=== PATIENT | female | born 1965 ===

== ENCOUNTER 2024-01-07 11:45 | Inpatient (IN) | payer OTHER ==
[~2024-01-07] VITALS: Ht 172.7 cm; Wt 78.5 kg
[~2024-01-07 11:45] MED LIST: CIPRO750 MG PO; CLONAZEPAM1 MG PO; DOCUSATE SODIU100 MG PO; LEVSIN0.125 MG PO; METHYLPRED4 MG/DOSE- PO; NEURONTIN PO; PERCOCET 5/3251 TAB PO; PROTONIX40 MG PO; ZANTAC300 MG PO; ZOFRAN4 MG PO
[2024-01-07] MEDS ORDERED: SYNTHROID112 MCG PO (13:51)
[2024-01-18] MEDS ORDERED: PROMETHAZINE HCL 50 MG/ML AMPUL IM PRN (08:15)
[2024-01-18] MEDS ORDERED: 0.9 % SODIUM CHLORIDE 1,000 ML IV SCH (08:15)
[2024-01-18] MEDS ORDERED: ENALAPRILAT DIHYDRATE 1.25 MG/ML VIAL IV PRN (08:15)
[2024-01-18] MEDS ORDERED: FAMOtidine 20 MG TABLET PO SCH (09:00)
[2024-01-18] MEDS ORDERED: TAMSULOSIN HCL 0.4 MG CAP PO SCH (09:00)
[2024-01-18] MEDS ORDERED: METHYLPREDNISOLONE SOD SUCC 125 MG VIAL IV SCH (09:00)
[2024-01-18] MEDS ORDERED: VANCOMYCIN HCL 1,000 MG VIAL IV SCH (09:00)
[2024-01-18] MEDS ORDERED: CEFAZOLIN SODIUM 1,000 MG in 0.9 % SODIUM CHLORIDE 50 ML IV SCH (09:00)
[2024-01-18] MEDS ORDERED: DOCUSATE SODIUM 100MG CAP PO SCH (09:00)
[2024-01-18] MEDS ORDERED: MORPHINE SULFATE 4 MG/ML CARTRIDGE IV SCH (09:00)
[2024-01-18] MEDS ORDERED: MEDROLPACK PO (12:35)
[2024-01-18] MEDS ORDERED: PERCOCET 5-3251 EACH PO (12:35)
[2024-01-18] MEDS ORDERED: AMOX-CLAV 875-1 EACH PO (12:36)
[2024-01-18] MEDS ORDERED: COLACE100 MG PO (12:36)
[2024-01-18] MEDS ORDERED: LYRICA50 MG PO (12:37)
[2024-01-18] MEDS ORDERED: LYRICA150 MG PO (12:37)
[2024-01-18] MEDS ORDERED: METHYLPREDNISOLONE ACETATE 80 MG/ML VIAL IJ ONE (13:45)
[2024-01-18] MEDS ORDERED: VANCOMYCIN HCL 1,000 MG VIAL IR ONE (13:45)
[2024-01-18] MEDS ORDERED: CEFAZOLIN SODIUM 1,000 MG VIAL IV ONE (13:45)
[2024-01-18] MEDS ORDERED: VANCOMYCIN HCL 1,000 MG VIAL SPEPROC ONE (13:45)
[2024-01-18] MEDS ORDERED: VANCOMYCIN HCL 1,000 MG VIAL IV ONE (13:45)
[2024-01-18] MEDS ORDERED: METHYLPREDNISOLONE SOD SUCC 125 MG VIAL IV ONE ×2 (13:45)
[2024-01-18] MEDS ORDERED: THROMBIN,HU/FIBRINOGEN/CALCIUM 10 ML SYRINGE TOP ONE (14:15)
[2024-01-18] MEDS ORDERED: HEMOSTATIC MATRIX WITH THROMBIN KIT TOP ONE (14:30)
[2024-01-18] MEDS ORDERED: MORPHINE SULFATE 4 MG/ML VIAL IV ONE (15:20)
[2024-01-18 19:26] VITALS: O2SAT 100
[2024-01-18 20:00] VITALS: BP 123/75; O2SAT 99
[2024-01-18] MEDS ORDERED: ACETAMINOPHEN 500 MG GEL..CAP PO SCH (20:00)
[2024-01-18] MEDS ORDERED: ZOLPIDEM TARTRATE 10 MG TABLET PO SCH (21:00)
[2024-01-18] MEDS ORDERED: GABAPENTIN 800 MG TABLET PO SCH (21:00)
[2024-01-18 23:48] VITALS: O2SAT 91; O2SAT 95
[2024-01-19] MEDS ORDERED: SODIUM CHLORIDE 0.45 % 1,000 ML IV SCH
[2024-01-19 04:00] VITALS: BP 134/70; O2SAT 96
[2024-01-19] MEDS ORDERED: LEVOTHYROXINE SODIUM 112 MCG TABLET PO SCH (06:00)
[2024-01-19] MEDS ORDERED: OxyCODONE HCL 5 MG TABLET (ROXICODONE) PO PRN (06:01)
[2024-01-19 06:23] VITALS: O2SAT 92
[2024-01-19 06:33] LABS: HEMATOCRIT 35.9 % (36.0-45.00); HEMOGLOBIN 12.4 g/dL (12.0-15.00); MEAN CORPUSCULAR HEMOGLOBIN 31.3 pg (27.00-32.0); MEAN CORPUSCULAR HGB CONC 34.4 g/dl (32.0-36.0); PLATELET COUNT 199 K/uL (150-450); RED BLOOD COUNT 3.95 M/uL (4.00-6.00); RED CELL DISTRIBUTION WIDTH 12.9 % (11.5-14.5)
[2024-01-19 06:56] LABS: CALCIUM 8.9 mg/dL (8.5-10.1); CREATININE SERUM 0.43 mg/dL (0.55-1.02); GFR 149.78; POTASSIUM 3.97 mEq/L (3.5-5.1)
[2024-01-19 08:39] VITALS: BP 129/75; O2SAT 96
[2024-01-19 09:13] VITALS: O2SAT 96
[2024-01-19 17:42] VITALS: BP 132/70; O2SAT 97
[2024-01-19 18:00] VITALS: O2SAT 98
[2024-01-20 00:09] VITALS: O2SAT 90
[2024-01-20 00:57] VITALS: BP 134/65; O2SAT 95
[2024-01-20 05:29] VITALS: O2SAT 91
[2024-01-20 08:58] VITALS: BP 133/67; BP 148/87; O2SAT 96
== END 2024-01-20 10:22 | disposition home or self-care (01) | DRG 428 ==
LOC: MEDI 01-18 06:19 → O/R 01-18 06:19 → SURH 01-18 11:45 → MEDI 01-18 16:43
PROVIDERS: ADMIT Orthopaedic Surgery Orthopaedic Surgery of the Spine; ATTEND Orthopaedic Surgery Orthopaedic Surgery of the Spine
PROC: 0SG1071 Fusion of 2 or more Lumbar Vertebral Joints with Autologous Tissue Substitute, Posterior Approach, Posterior Column, Open Approach (ICD-10-PCS; 2024-01-18)
PROC: 0ST20ZZ Resection of Lumbar Vertebral Disc, Open Approach (ICD-10-PCS; 2024-01-18)
PROC: 07DR0ZZ Extraction of Iliac Bone Marrow, Open Approach (ICD-10-PCS; 2024-01-18)
PROC: 4A1104G Monitoring of Peripheral Nervous Electrical Activity, Intraoperative, Open Approach (ICD-10-PCS; 2024-01-18)
PROC: 4A12X4Z Monitoring of Cardiac Electrical Activity, External Approach (ICD-10-PCS; 2024-01-18)
PROC: XRGC0R7 Fusion of 2 or more Lumbar Vertebral Joints using Custom-Made Anatomically Designed Interbody Fusion Device, Open Approach, New Technology Group 7 (ICD-10-PCS; principal; 2024-01-18 13:30)
DX: M43.16 Spondylolisthesis, lumbar region (principal); M48.062 Spinal stenosis, lumbar region with neurogenic claudication